=== PATIENT | female | born 1985 | race Two or more races ===

== ENCOUNTER 2018-06-24 01:24 | Emergency (ER) | payer SELFPAY ==
[~2018-06-24] VITALS: Ht 152.4 cm; Wt 72.6 kg
[2018-06-24] MEDS ORDERED: MORPHINE SULFATE 4 MG/ML SYR/VIAL IV ONE (01:45)
[2018-06-24] MEDS ORDERED: ONDANSETRON HCL 4 MG/2 ML VIAL IV ONE (01:45)
[2018-06-24 06:52] VITALS: BP 120/71
[2018-06-24] MEDS ORDERED: ACETAMINOPHEN 500 MG TAB PO ONE (07:00)
== END 2018-06-24 07:28 | disposition home or self-care (01) ==
LOC: ER 01:24
DX: S01.01XA Laceration without foreign body of scalp, initial encounter (principal); S60.221A Contusion of right hand, initial encounter; X93.XXXA Assault by handgun discharge, initial encounter; Y93.89 Activity, other specified; Y92.89 Other specified places as the place of occurrence of the external cause; Y99.8 Other external cause status
CPT/HCPCS: 12001; 70450; 72125; 73120; 96374; 96375; 99284; J2270; J2405